=== PATIENT | female | born 1995 | race Caucasian/White ===

== ENCOUNTER → 2018-11-22 14:07 | Outpatient (CLI) | payer MEDICAID, SELFPAY ==
[2015-12-28 06:30] VITALS: BMI 33.2
[2018-11-22 17:31] LABS: Chlamydia Trachomatis by PCR Negative (Negative); Neisserai gonorrhoeae by PCR Negative (Negative); Probe Check PASS; Sample Adequacy Control PASS; Specimen Processing Control PASS
[2018-11-28 12:24] LABS: HPV Reflexed? NOT INDICATED
== END ==
PROVIDERS: Visit Provider Obstetrics & Gynecology
DX: Z12.4 Encounter for screening for malignant neoplasm of cervix (principal); Z11.3 Encounter for screening for infections with a predominantly sexual mode of transmission
CPT/HCPCS: 87491; 87591; 88175; G0145

== ENCOUNTER → 2018-12-05 11:09 | Outpatient (CLI) | payer MEDICAID, SELFPAY ==
[2015-12-28 06:30] VITALS: BMI 33.2
[2018-12-05 13:29] LABS: Color, Urine Yellow (Yellow); Glucose, Dipstick Normal (Normal); Ketone-Dipstick 5 mg/dl (Negative); Leukocyte Esterase-Dipstick 25 /ul (Negative); Nitrite-Dipstick Negative (Negative); Occult Blood-Urine 10 /ul (Negative); Protein-Dipstick Negative (Negative); Urine Bilirubin Dipstick Negative (Negative); Urine Clarity Cloudy (Clear); Urine Urobilinogen Normal (Normal)
[2018-12-05 13:49] LABS: Thyroid Stim Hormone (TSH) 0.98 uIU/mL (0.358-3.74)
[2018-12-05 13:53] LABS: Hematocrit 37.3 % (37-47); Hemoglobin 12.9 g/dl (12.0-15.0); Mean Corp Hgb Conc 34.6 g/gl (32-36); Mean Corpuscular Hgb 31.1 pg (27.0-32.0); Mean Corpuscular Volume 89.9 fL (81-99); Mean Platelet Vol. 9.9 fl (6.2-12.0); Platelet Count 215 K/mm3 (150-450); RBC Distribution Width SD 42.2 fl (35.1-43.9); Red Blood Count 4.15 M/mm3 (4.2-5.4); White Blood Count 6.4 K/mm3 (4.4-11.0)
[2018-12-05 13:54] LABS: Absolute Lymphocyte Count 1.62 X10^3/ul (0.83-4.51); Absolute Neutrophil Count 4.1 X10^3/uL (2.0-7.7); Basophil# 0.02 X10^3/uL; Basophil% 0.3 % (0-1); Eosinophil# 0.12 X10^3/uL; Eosinophils% 1.9 % (0-5); Lymphocyte # 1.62 X10^3/ul (4.0); Lymphocyte % 25.5 % (19-41); Monocyte# 0.47 X10^3/uL; Monocyte% 7.4 % (0-10); Neutrophil # 4.11 X10^3/uL (2.7-7.7); Neutrophil % 64.6 % (47-70); POSITIVE COUNT NO; POSITIVE DIFFERENTIAL NO; POSITIVE MORPHOLOGY NO
[2018-12-05 14:29] LABS: HIV - WCH Non-Reactive (Nonreactive); Rubella IgG 51.7 IU/mL
[2018-12-06 20:20] LABS: Prenatal RPR NONREACTIVE (NONREACTIVE)
[2018-12-07 09:17] LABS: HEPATITIS B SURFACE AG Negative (Negative); Hep C Antibodies 0.1 s/co ratio (0.0-0.9)
== END ==
PROVIDERS: Visit Provider Obstetrics & Gynecology
DX: Z34.81 Encounter for supervision of other normal pregnancy, first trimester (principal)
CPT/HCPCS: 36415; 81002; 84443; 85025; 86703; 86762; 86803; 87340

== ENCOUNTER → 2019-04-08 | Outpatient (CLI) | payer MEDICAID, SELFPAY ==
[2015-12-28 06:30] VITALS: BMI 33.2
[2019-04-08 11:14] LABS: Hematocrit 31.4 % (37-47); Hemoglobin 10.6 g/dl (12.0-15.0); Mean Corp Hgb Conc 33.8 g/gl (32-36); Mean Corpuscular Hgb 30.8 pg (27.0-32.0); Mean Corpuscular Volume 91.3 fL (81-99); Mean Platelet Vol. 9.7 fl (6.2-12.0); Platelet Count 186 K/mm3 (150-450); RBC Distribution Width CV 12.6 % (11.6-14.6); RBC Distribution Width SD 40.6 fl (35.1-43.9); Red Blood Count 3.44 M/mm3 (4.2-5.4); Scan Indicated on CBC? Y/N NO; White Blood Count 7.6 K/mm3 (4.4-11.0)
[2019-04-08 11:39] LABS: Glucose Challenge Gest 1H 50g 96 mg/dL (70-140)
== END | disposition home or self-care (01) ==
PROVIDERS: Visit Provider Obstetrics & Gynecology
DX: Z34.83 Encounter for supervision of other normal pregnancy, third trimester (principal)
CPT/HCPCS: 36415; 82950; 85027; 86850

== ENCOUNTER → 2019-06-03 13:51 | Outpatient (CLI) | payer MEDICAID, SELFPAY | PROVIDERS: Visit Provider Obstetrics & Gynecology | DX: Z34.83 Encounter for supervision of other normal pregnancy, third trimester (principal); Z36.85 Encounter for antenatal screening for Streptococcus B | CPT/HCPCS: 87081 ==

== ENCOUNTER 2019-07-01 09:35 | Inpatient (IN) | payer MEDICAID, SELFPAY ==
[2015-12-28 06:30] VITALS: BMI 33.2
--- NOTE | 2019-07-01 10:08 | HP.PCM_ITS ---
History and Physical Date of Admission: 07/01/19 OB HISTORY AND PHYSICAL EXAMINATION History of this : 23 yo female Ab0 with EDC 06/26/2019 by 11 weeks 0 days Ultrasound, presents to Labor and Delivery at 40 5/7 wk with CC of contractions. 5 cm at initial RN exam. care remarkable for : A negative. GBS negative 1.) MSAFP and CF testing declined 2.) Prefers no epidural, ANEMIA 3.) Third baby with Down Syndrome 4.) Sterilization request, FED CONSENT FOR TUBAL signed 04/08/19 5.) A negative Pertinent Past Medical History: As above. Allergies: NKDA Medications: During - terconazole 0.8 % vaginal cream; + DHA 28 mg iron- 975 mcg-200 mg oral pack; ferrous sulfate 325 mg (65 mg iron) tablet Review of Systems: Contractions SURGICAL HISTORY: 1. Tonsils, 11/07 MENSTRUAL HISTORY: LMP Known?- DefiniteAmount/Duration - 5 days, Regularity - Regular, Frequency - monthly days, LMP - 09/26/18, Age Onset Menarche - 13 PAST PREGNANCIES: Total Pregnancies - 4; Full Term Pregnancies - 3; Premature - 0; Abortions, Induced - 0; Abortions, Spontaneous - 0; Ectopics - 0; Multiple Births - 0; Living Children - 3 FAMILY HISTORY: SURGICAL HISTORY: 1. Tonsils, 11/07 MENSTRUAL HISTORY: LMP Known?- Definite Amount/Duration - 5 days, Regularity - Regular, Frequency - monthly days, LMP - 09/26/18, Age Onset Menarche - 13 PAST PREGNANCIES: Total Pregnancies - 4; Full Term Pregnancies - 3; Premature - 0; Abortions, Induced - 0; Abortions, Spontaneous - 0; Ectopics - 0; Multiple Births - 0; Living Children - 3 FAMILY HISTORY: Brother - Leukemia; Paternal Grandparent - Cancer; SOCIAL HISTORY: Alcohol Use - None Smoking - Never Diet - moderate, balanced diet and caffeine < 2 drinks per day Lifestyle - Exercise - minimal Seat Belt Use - always Job Description - Homemaker Illicit Drug Use - denies use of street drugs Sexual Activity - Residence - lives in a home w and toddler Place of - [place] Spouse-Sig Other Name - Eddie Morgan Spouse-Sig Other Occupation - [employer] Spouse-Sig Other Phone No - [phone] Children Name(s) - Elana Morgan 2014, (EB) Alee, 2016 (EB) Control - PHYSICAL EXAMINATION General Appearance: 23 yo female uncomfortable with contractions Vital Signs: AF, VSS Breasts: deferred Abdomen: gravid Pelvis: adequate Cervix: 5 cm VTX AGA Movement: present Heart: present 130-140s avg variability. Accels UCs q 2-3 wks. Reassuring FHR tracing. Impression /Plan: Intrauterine . 40 5/7 wk EGA in labor. Admit to labor and delivery for delivery.
[2019-07-01] MEDS: Lactated Ringers 1,000 ML 50 ML IV (10:20)
[2019-07-01 10:26] VITALS: BMI 35.6
[2019-07-01 10:36] LABS: Absolute Lymphocyte Count 2.25 X10^3/uL (0.83-4.51); Absolute Neutrophil Count 6.7 X10^3/uL (2.0-7.7); Basophil# 0.04 X10^3/uL; Basophil% 0.4 % (0-1); Eosinophil# 0.15 X10^3/uL; Eosinophils% 1.5 % (0-5); Hematocrit 34.3 % (37-47); Hemoglobin 11.3 g/dL (12.0-15.0); Lymphocyte # 2.25 X10^3/ul (4.0); Mean Corp Hgb Conc 32.9 g/dL (32-36); Mean Corpuscular Hgb 29.3 pg (27.0-32.0); Mean Corpuscular Volume 88.9 fL (81-99); Mean Platelet Vol. 10.1 fl (6.2-12.0); Monocyte% 6.1 % (0-10); NRBC Flagged by Analyzer 0 % (0-5); Neutrophil # 6.68 X10^3/uL (2.7-7.7); Neutrophil % 68.5 % (47-70); Platelet Count 172 K/mm3 (150-450); Red Blood Count 3.86 M/mm3 (4.2-5.4); White Blood Count 9.8 K/mm3 (4.4-11.0)
[2019-07-01] MEDS: Lactated Ringers 500 ML 999 ML IV (11:40)
--- NOTE | 2019-07-01 12:06 | PCM.PN.OB ---
Subjective: Able to breath through contractions, states coping well; would like delayed cord clamping if she and baby are doing well; bedside and supportive; he would prefer provider cut cord. Objective: Breathing through contractions AVSS FHTs:135bp, baseline, moderate variability, with acel, no decels UCs: Q 2-3, palpate moderate Cervical exam: deferred - Physical Exam General: Alert, Oriented x3, Cooperative, No apparent distress HEENT: PERRLA, EOMI Oral: Moist Mucosa Neck: Supple Lungs: Clear to auscultation, Normal air movement Cardiovascular: Regular rate, Regular Rhythm Abdomen: Bowel Sounds Present, Soft, Non Tender, Non-Distended, Gravid Extremities: No cyanosis, Capillary Refill Less than 3 Seconds Musculoskeletal: No Tenderness to Palpation of Joints or Extremities Neurological: Cranial nerves II-XII grossly intact, Deep Tendon Reflexes 2+/4 and Symmetrical Psych/Mental Status: Normal Affect, Appropriate, Alert and oriented to time, place, person, mood and affect Weight: 194 lb 10.691 oz Body Mass Index (BMI) 35.6 Intake and Output for Last 24 Hours 06/29/19 06/30/19 07/01/19 23:59 23:59 23:59 Intake Total 66.67 / 66.67 Balance 66.67 / 66.67 Laboratory Tests Past 24 Hrs 07/01/19 07/01/19 10:20 10:20 WBC 9.8 RBC 3.86 L Hgb 11.3 L Hct 34.3 L MCV 88.9 MCH 29.3 MCHC 32.9 RDW Std Deviation 42.0 RDW Coeff of Tresa 13.0 Plt Count 172 MPV 10.1 Immature Gran % (Auto) 0.500 Neut % (Auto) 68.5 Lymph % (Auto) 23.0 [place] % (Auto) 6.1 Eos % (Auto) 1.5 Baso % (Auto) 0.4 Absolute Neuts (auto) 6.7 Absolute Lymphs (auto) 2.25 Nucleated RBC % 0 Blood Type A NEGATIVE Antibody Screen NEGATIVE Medical Necessity - Tobacco Use Smoking Status: Never smoker Assessment/Plan Assessment: 23yo , IUP @ 22g2oooo GBS negative RH negative Active labor Plan: Expectant management Anticipate vaginal
--- NOTE | 2019-07-01 13:29 | PCM.PN.BLA ---
Progress Note 40 5/7 wk EGA labor Requested AROM Using nitrous oxide for pain. Declined epidural. AROM performed, clear fluid CX: 6/100/-2 vtx. EFM reassuring. A/P: 40 5/7 wk labor. AROM. Shortly after AROM, now requesting epidural. Will attempt placement.
[2019-07-01] MEDS: fentaNYL-bupivacaine (epidural) 100 ML BAG EPIDURAL (13:36)
[2019-07-01] MEDS: Oxytocin 30 units/NS 500 ml 30 UNITS/500 ML IV.SOLN IV (16:50)
[2019-07-01] MEDS: Lactated Ringers 1,000 ML 200 ML IV (17:29)
[2019-07-01] MEDS: Oxytocin 30 units/NS 500 ml 30 UNITS/500 ML IV.SOLN 334 UNITS IV (18:33)
[2019-07-01] MEDS: Methylergonovine 0.2 MG/ML Ampul IM (18:41)
--- NOTE | 2019-07-01 18:44 | PCM.OPRPT ---
Vaginal Delivery Maternal Presentation: Active Labor 40 5/7 wk labor Amniotic Membrane Rupture Type: Artificial Amniotic Fluid Description: Clear Final RHETT: 06/26/19 Final RHETT Source: US <20 weeks Gestational age: 40 Weeks and 5 Days Date of Procedure: 07/01/19 Pre-Operative Diagnosis: 40 5/7 wk labor Post-Operative Diagnosis: same Surgery/ Procedure Performed: Spontaneous Vaginal Delivery Anesthesiologist: Medardo Salmon Type of Anesthesia: Epidural Description of Procedure: of a mora viable male over intact perineum. Head delivered KALINA. OP and nares bulb suctioned on perineum. No nuchal cord. shoulder dystocia noted. Relieved by Nicolette maneuver, maternal expulsive effort. Gentle lateral traction and Wood screw maneuver. Anterior shoulder delivered then posterior shoulder. Ap 8/9 Weight pending Infant to maternal abdomen for warming and drying. Vigorous cry. Placenta delivered by spont expulsion and expression. Bandls ring noted at lower uterine segment and placenta teased out through this. uterus then manually explored. No retained membranes noted PP exam: no lacerations noted. No repair required. Pt and infant tolerated delivery well. to recovery, stable condition. Ray layla counts correct times two EBL 300 cc Presentation: Vertex, KALINA Placental Delivery Description: Spontaneous, Expressed Placenta Disposition: [facility] Cord Vessel Description: 3 Vessels Drain: Torres to straight drain Estimated Blood Loss: 300 Infant A gender: Male (1 minute): 8 (5 minute): 9 Episiotomy Description: None Laceration: None Medications given after delivery: IV Pitocin Complications: None
--- NOTE | 2019-07-01 18:50 | DCINST_ITS ---
Discharge Diet: No Restrictions Discharge Activity: May Shower, May Take a Tub Bath May resume sexual activity in: 4-6 weeks Additional Activity Instructions:: Nothing in the vagina for 4-6 weeks. You may return to work/school in 6 weeks. Additional Instructions: If you experience any of the following, contact your healthcare provider. * Bleeding that soaks a pad every hour for 2 hours * Fever 100.4 or higher * Unrelieved abdominal pain * Problems urinating (including inability to urinate or burning while urinating). * Visual changes * Severe headache * Flu-like symptoms * Pain or redness in one of both of your breasts * Pain, warmth, tenderness or swelling in your legs, especially the calf area * Frequent nausea and vomiting * Symptoms of depression or anxiety If you experience any of the following, call 911 or go to the nearest Emergency Room. * Chest pain * Problems breathing * Seizure activity * Partial or complete paralysis of a body part, slurred speech, weakness or drooping of the face, or a sudden inability to walk or hold your balance Allergies/Adverse Reactions: Allergies No Known Allergies Allergy (Verified 12/28/15 06:34) Medications to take at Discharge Vits [Prenatabs FA ] 1 tablet PO DAILY 12/05/13 Please Follow Up With: Bailey Segal MD - [phone] When: Call to make an appointment with your doctor in 6 weeks. Primary Care Physician: Care Physician,No Primary [Primary Care Provider] - Test Results: Test results from this visit will be discussed in further detail at your follow- up appointment, if applicable. Proposed Discharge Date: 07/03/19
--- NOTE | 2019-07-01 18:50 | PCM.DCVAG ---
Discharge Diet: No Restrictions Discharge Activity: May Shower, May Take a Tub Bath May resume sexual activity in: 4-6 weeks Additional Activity Instructions:: Nothing in the vagina for 4-6 weeks. You may return to work/school in 6 weeks. Additional Instructions: If you experience any of the following, contact your healthcare provider. Bleeding that soaks a pad every hour for 2 hours Fever 100.4 or higher Unrelieved abdominal pain Problems urinating (including inability to urinate or burning while urinating). Visual changes Severe headache Flu-like symptoms Pain or redness in one of both of your breasts Pain, warmth, tenderness or swelling in your legs, especially the calf area Frequent nausea and vomiting Symptoms of depression or anxiety If you experience any of the following, call 911 or go to the nearest Emergency Room. Chest pain Problems breathing Seizure activity Partial or complete paralysis of a body part, slurred speech, weakness or drooping of the face, or a sudden inability to walk or hold your balance Allergies/Adverse Reactions: Allergies No Known Allergies Allergy (Verified 12/28/15 06:34) Medications to take at Discharge Vits [Prenatabs FA ] 1 tablet PO DAILY 12/05/13 Please Follow Up With: Bailey Segal MD - [phone] When: Call to make an appointment with your doctor in 6 weeks. Primary Care Physician: Care Physician,No Primary [Primary Care Provider] - Test Results: Test results from this visit will be discussed in further detail at your follow-up appointment, if applicable. Proposed Discharge Date: 07/03/19
[2019-07-01 20:38] VITALS: BP 125/62; PULSE 85; RESP 16; TEMP 36.9; O2SAT 98
[2019-07-01] MEDS: 0.9% Saline Lock 10 ML Syringe IV (21:29)
[2019-07-02 00:44] VITALS: BP 119/49; PULSE 96; RESP 16; TEMP 36.3; O2SAT 95
[2019-07-02] MEDS: Ibuprofen 600 MG Tablet PO ×2 (04:36→14:59)
[2019-07-02 04:48] VITALS: BP 125/51; PULSE 94; RESP 16; TEMP 36.4; O2SAT 95
--- NOTE | 2019-07-02 07:03 | PN.OBGYN_ITS ---
Subjective: PPD#1 Doing well. Nursing baby wt 10# 1 oz. Doing well with nursing States he has completed sugar testing and all WNL. Hoping to go home later today if baby is released - Physical Exam General: Alert, Oriented x3, Cooperative, No apparent distress HEENT: Atraumatic, EOMI Neck: Supple Abdomen: Soft - Fundus firm at umbilicus. NT Neurological: Cranial nerves II-XII grossly intact Psych/Mental Status: Normal Affect Vital Signs Temp Pulse Resp BP Pulse Ox 97.6 F L 94 16 125/51 H 95 07/02/19 04:48 07/02/19 04:48 07/02/19 04:48 07/02/19 04:48 07/02/19 04:48 Oxygen Delivery Method Room Air Weight: 88.3 kg Body Mass Index (BMI) 35.6 Intake and Output for Last 24 Hours 06/30/19 07/01/19 07/02/19 23:59 23:59 23:59 Intake Total 2284.82 / 2284.82 Output Total 1100 / 1100 450 / 450 Balance 1184.82 / 1184.82 -450 / -450 Laboratory Tests Past 24 Hrs 07/01/19 07/01/19 10:20 10:20 WBC 9.8 RBC 3.86 L Hgb 11.3 L Hct 34.3 L MCV 88.9 MCH 29.3 MCHC 32.9 RDW Std Deviation 42.0 RDW Coeff of Tresa 13.0 Plt Count 172 MPV 10.1 Immature Gran % (Auto) 0.500 Neut % (Auto) 68.5 Lymph % (Auto) 23.0 [place] % (Auto) 6.1 Eos % (Auto) 1.5 Baso % (Auto) 0.4 Absolute Neuts (auto) 6.7 Absolute Lymphs (auto) 2.25 Nucleated RBC % 0 Blood Type A NEGATIVE Antibody Screen NEGATIVE Medical Necessity - Tobacco Use Smoking Status: Never smoker Assessment/Plan PPD#1 Stable pp. GBS neg. Would like to go home today, after 24 hr testing on baby. Baby LGA but doing well with nursing. Dischg home today if baby is released. RTO in 6 wk for pp check, prn sooner.
[2019-07-02 08:20] VITALS: BP 127/69; PULSE 85; RESP 16; TEMP 36.5; O2SAT 97
[2019-07-02 11:58] VITALS: BP 122/47; PULSE 73; RESP 16; TEMP 36.2
[2019-07-02] MEDS: Prenatal Vits Tablet 1 TABLET PO (15:00)
[2019-07-02 17:00] VITALS: BP 127/68; PULSE 69; RESP 16; TEMP 36.2
== END 2019-07-02 20:05 | disposition home or self-care (01) | DRG 560 ==
PROVIDERS: Advanced Practice Midwife; Admitting Provider Obstetrics & Gynecology; Referring Provider Obstetrics & Gynecology; Visit Provider Obstetrics & Gynecology
DX: O66.0 Obstructed labor due to shoulder dystocia (principal); O36.63X0 Maternal care for excessive fetal growth, third trimester, not applicable or unspecified; O99.02 Anemia complicating childbirth; D64.9 Anemia, unspecified; Z3A.40 40 weeks gestation of pregnancy; Z37.0 Single live birth
CPT/HCPCS: 59025; 59050; 85025; 86850; 86900; 86901; 99218; J7120; A4216; G0378

== ENCOUNTER 2019-08-28 10:33 | Day surgery (SDC) | payer MEDICAID, SELFPAY ==
--- NOTE | 2019-08-27 09:01 | HP.PCM_ITS ---
History and Physical Date of Admission: 08/28/19 Rosa presented for exam and plans surgical sterilization for bir th control. She signed Federal Consent for tubal ligation during , in March 2019. No further childbearing planned. Reviewed R,B,A of bilateral salpingectomy EB ALLERGIES: NKDA MEDICATIONS HISTORY: Current medications prescribed by our practice are: 1. ferrous sulfate 325 mg (65 mg iron) tablet, 1 po bid Patient is also takin. + DHA 28 mg iron-975 mcg-200 mg oral pack, daily REVIEW OF SYSTEMS: GENERAL - Denies fever, or chills SKIN - Denies skin changes EYES - Denies visual changes EARS - Denies difficulty hearing NOSE - Denies nasal congestion or bleeding MOUTH - Denies sore throat or difficulty swallowing NECK - Denies pain or swelling RESPIRATORY - Denies shortness of breath or wheezing CARDIOVASCULAR - Denies palpitations or chest pain GASTROINTESTINAL - Denies nausea, vomiting, diarrhea, constipation GENITOURINARY - Denies dysuria, frequency of urination, incontinence of urine MUSCULOSKELETAL - Denies joint or muscle pain NEUROLOGICAL - Denies localized numbness or weakness PSYCHIATRIC - Denies depression or anxiety ENDOCRINE - Denies heat or cold intolerance, weight loss or gain HEMATO-IMMUNOLOGIC - Denies excessive bleeding with cuts PAST HISTORY: Breast/Ovarian/Colon Cancers - Denies Infections - Chicken pox Illnesses - none Accidents - no injuries of consequence History of Abnormal PAPS - Never Hospitalizations - see surgery SURGICAL HISTORY: 1. Tonsils, 11/07 PAST PREGNANCIES: Total Pregnancies - 4; Full Term Pregnancies - 4; Premature - 0; Abortions, Induced - 0; Abortions, Spontaneous - 0; Ectopics - 0; Multiple Births - 0; Living Children - 4 FAMILY HISTORY: Brother - Leukemia; PaternalGrandparent - Cancer; SOCIAL HISTORY: Alcohol Use - None Smoking - Never Diet - moderate, balanced diet and caffeine < 2 drinks per day Lifestyle - Exercise - minimal Seat Belt Use - always Job Description - Homemaker Illicit Drug Use - denies use of street drugs Sexual Activity - Residence - lives with Place of - [place], [place] Spouse-Sig Other Name - Eddie Morgan Spouse-Sig Other Occupation - Construction Spouse-Sig Other Phone No - [phone] Children Name(s) - Elana 2014, (EB) Alee, 2016 (EB), Colleen ([facility]), [place] (EB) Control - wants tubal PHYSICAL EXAMINATION BP- 100/60 Sitting, Right arm, regular cuff Weight- 166.00 lbs Height- 62.50 inch BMI:29.94 CONSTITUTIONAL - NAD, well nourished, and well developed HEENT - Normocephalic, PERRLA, EOMI NECK - no nuchal rigidity EXTREMITIES - No edema or calf tenderness NEUROLOGICAL - Cranial nerves II-XII grossly intact PSYCHIATRIC - A and O to time, place, person, mood and affect ASSESSMENT: 1. Other Specified Counseling; sterilization request PLAN BY DIAGNOSIS: 1. Other Specified Counseling, Sterilization request Reviewed surgical procedure. R,B,A as well as anticipated preop, operative and postop recovery including activity restrictions reviewed. All questions answered to patient's satisfaction and consents signed and on chart. Plan for Laparoscopic salpingectomy. RTO in 2 wk after surgery for this.
[2019-08-28 11:12] LABS: International Normalized Ratio 1.1; Partial Thromboplast Time 28.4 Seconds (24.1-36.2); Prothrombin Time (Protime)PT. 13.9 SECONDS (11.7-14.9)
[2019-08-28 11:33] VITALS: BP 104/63; PULSE 58; RESP 16; TEMP 36.4; O2SAT 100; BMI 30.7
[2019-08-28 11:35] LABS: Internal QC Validated? YES +Cl - CLEAR BKGD; Pregnancy, Urine Negative Negative
[2019-08-28] MEDS: Lactated Ringers 1,000 ML 100 ML IV (11:38)
[2019-08-28] MEDS: Lubricating Jelly 60 GM Tube 30 GM TOPICAL (12:26)
--- NOTE | 2019-08-28 12:30 | FALS_PTH ---
PATIENT: MAULIK FIGUEROA LOC: [facility] [place] U#:[id number] AGE/SX: 23/F ROOM: RE08/28/[address]: Dr. Bailey Segal MD : [id number] BED: DIS: 08/28/2019 SPEC #: [id number] RECD: 08/28/19 16:14 STATUS: KEARA OSCAR #: [id number] HUSEYIN: 08/28/19 12:[address]: Bailey Segal DEPT: SURGICAL PATHOLOGY RECD BY: Yury Medrano ENTERED: 08/29/19 10:37 SP TYPE: FALL TUBES OTHR DR: No Primary Care Phys Tissues: Fallopian tube Procedures: Surgery Specimen Level II Surgery Specimen Level IV HEADER OPERATION: Laparoscopic salpingectomy PRE-OP DIAGNOSIS: Elective sterilization TISSUE SUBMITTED: Bilateral fallopian tubes MICROSCOPIC DIAGNOSIS Right and left fallopian tubes, bilateral salpingectomies: Two complete segments of fallopian tubes. Benign paratubal cyst. AM:flavia 08/30/19 MICROSCOPIC DESCRIPTION Slides are reviewed. GROSS DESCRIPTION Received is one container labeled with the patient's name and designated bilateral fallopian tubes. The specimen consists of bilateral fallopian tubes including fimbrial ends measuring 4 cm in length and 0.7 cm in diameter and 3.5 cm in length and 0.5 cm in diameter. A paratubal cyst is noted in the smaller fallopian tube which measures 1 x 0.7 x 0.5 cm. Pedicle measures up to 2.5 cm in length and 0.1 cm in diameter. The fallopian tubes are not identified as right or left. Sections reveal unremarkable cut surfaces. Vending Machine Repairer sections are submitted in two cassettes as follows: 1 - one fallopian tube, 2 - second fallopian tube and paratubal cyst. / SJ:flavia 08/29/19 TC: CPT: 68078, 19790
--- NOTE | 2019-08-28 12:45 | DCINST_ITS ---
Discharge Diet: No Restrictions Discharge Activity: May Shower, May Take a Tub Bath Return to work on:: 08/29/19 May resume sexual activity in: 1 week Additional Activity Instructions:: Ambulate often the next week after surgery. Nothing in the vagina for 5 days. Call your doctor if you observe: Fever of 101 or Higher, Uncontrolled pain Cleanse incision/area with: Soap & Water, Keep Dressing Clean & Dry Additional Instructions: Take tylenol 500 mg tabs 1 or 2 tabs by mouth every 8 hrs. You may add either two Aleve or three Ibuprofen every 8 hr for pain also. Add OxyIR 1 tablet by mouth every 6 hrs for more severe pain as needed. Allergies/Adverse Reactions: Allergies No Known Allergies Allergy (Verified 08/28/19 11:32) Medications to take at Discharge Vits [Prenatabs FA ] 1 tablet PO DAILY 12/05/13 Oxycodone [Oxyir] 5 mg PO Q6H PRN PRN 2 Days #5 tab 08/28/19 The following prescriptions were given: Oxycodone [Oxyir] 5 mg PO Q6H PRN PRN 2 Days #5 tab PRN Reason: Mod-Severe Pain (4-10/10) Transmission Status: Sent to [id number] Primary Care Physician: Care Physician,No Primary [Primary Care Provider] - Test Results: Test results from this visit will be discussed in further detail at your follow- up appointment, if applicable. Please Follow Up With: Bailey Segal MD - [phone] When: Appt in two weeks for postop check up in the office. Proposed Discharge Date: 08/28/19
[2019-08-28] MEDS: Bupiv/Epi 0.25% 30 ML Vial (12:57)
--- NOTE | 2019-08-28 13:12 | PCM.OPRPT ---
Report of Operation Date of Procedure: 08/28/19 Pre-Operative Diagnosis: sterilization request Post-Operative Diagnosis: same Surgery/Procedure Performed:: Laparoscopic bilateral salpingectomy Description of Surgical Findings:: Findings; Normal appearing, anteverted uterus. Fallopian tubes and ovaries are WNL. Gross inspection of bowel, omentum. liver edge also WNL. photos were taken of the uterus and ovaries after Bilateral salpingectomy, and of the RUQ / liver edge Type of Anesthesia:: General Anesthesiologist: Lisa Cowan CRNA Specimen's removed: Bilateral fallopian tubes Drains: red purdy prior to case Estimated Blood Loss (mL): 20 Fluids Replaced: LR Description of Procedure: Narrative account: After the risks, benefits, alternatives of procedure had been reviewed with the patient, informed consent was obtained. The patient was taken back to the Operative room with an IV running. she was positioned on the operating table in dorsal supine position, where she was given general anesthesia. Once asleep she was repositioned to the dorsal lithotomy position and prepped and draped in the usual sterile fashion. A red Purdy catheter was used to drain the bladder prior to initiating the case. A sponge stick placed into the vagina to allow manipulation of the uterus and cervix during the case. Attention was then turned to the anterior abdominal wall where 10 cc of 0.25 % Marcaine with epinephrine was instilled at the suprapubic and infraumbilical skin and at a point midway between in the midline. Skin incisions were then created in the midline at the suprapubic skin and at the infraumbilical skin and midway between the two. While maintaining upward traction of the anterior abdominal wall a Veress needle was inserted through the umbilical incision into the peritoneal cavity. There was free drop of saline, low opening pressure and free flow of CO2 noted. Once the intraabdominal pressure had reached 12 mm of mercury the Veress needle was removed and a bladeless 5 mm trocar was placed through infraumbilical skin incision into the peritoneal cavity. Correct placement was confirmed using the scope. Under direct visualization then with the patient in Trendelenburg position, a bladeless 5 mm trocar was inserted in through suprapubic skin incision into the peritoneal cavity and at a point midway between the infraumbilical and suprapubic trocars. The uterus as anteverted and both ovaries and fallopian tubes were WNL. The R fallopian tube was grasped and retracted medially and using a LigaSure device the fallopian tube was excised from the ovary and mesosalpinx. Excellent hemostasis was noted at the excision site. The R fallopian tube was brought through the suprapubic trocar and set aside for later pathology review. In a similar manner the L fallopian tube was grasped and retracted medially and the fallopian tube was excised and removed from the abdominal cavity through the suprapubic trochar. The Fallopian tubes were sent to pathology. Excellent hemostasis was noted by visualization of the pelvis, ovaries, and remaining mesosalpinx. Photos were taken of the uterus and Bilateral remaining ovaries and of the RUQ and liver edge. At this point the the procedure was terminated. The pneumoperitoneum was reduced and the instruments and trocars were removed from he the anterior abdominal wall skin. The skin incisions were closed with 4-0 Monocryl in a subcuticular fashion. Dermabond was applied to the skin. The sponge stick was removed from the vagina. The patient was returned to dorsal supine position. She was awakened from general anesthesia. She was transferred to the recovery room bed in stable condition after tolerating the procedure well. Sponge, lap, needle and instrument counts were correct x two. Medications given preop and intraoperatively included: 10 cc of 1/2 % Marcaine with epinephrine --used as a subcutaneous block and Toradol 30 mg IV x one. For a complete listing of medications given preop and intraop , please see the anesthesia record. - Complications none - Admit VTE Documentation VTE Present on Admission: No VTE Mechan Device Prophylaxis: SCD's VTE Pharm Prophylaxis ordered?: No
[2019-08-28] MEDS: Sugammadex Sodium 200 MG/2 ML VIAL IV (13:15)
[2019-08-28 13:27] VITALS: BP 104/63; BP 110/55; PULSE 84; RESP 18; TEMP 36.8; O2SAT 97
[2019-08-28 13:30] VITALS: BP 104/63; BP 110/56; PULSE 75; RESP 18; O2SAT 100
[2019-08-28 13:45] VITALS: BP 104/63; BP 105/60; PULSE 65; RESP 18; O2SAT 99
[2019-08-28 13:53] VITALS: BP 104/63; BP 105/66; PULSE 66; RESP 18; TEMP 36.6; O2SAT 99
[2019-08-28 14:53] VITALS: BP 104/63; BP 105/64; PULSE 62; RESP 16; TEMP 36.3; O2SAT 98
== END 2019-08-28 14:53 | disposition home or self-care (01) ==
LOC: SDC 10:34 → AC 10:41
PROVIDERS: Anesthesiology; Referring Provider Obstetrics & Gynecology; Visit Provider Obstetrics & Gynecology
PROC: (CPT 58661; principal; 2019-08-28 12:15)
DX: Z30.2 Encounter for sterilization (principal); N83.8 Other noninflammatory disorders of ovary, fallopian tube and broad ligament
CPT/HCPCS: 00840; 58661; 36415; 81025; 85610; 85730; 88302; 88305; J7120; J2405

== ENCOUNTER 2019-11-16 21:31 | Emergency (ER) | payer MEDICAID, SELFPAY ==
[2019-11-16 21:31] VITALS: BP 124/74; PULSE 119; RESP 16; TEMP 38.2; O2SAT 95; BMI 30.2
[2019-11-16 22:33] VITALS: BP 126/78; PULSE 111; RESP 17; TEMP 37.7; O2SAT 97
--- NOTE | 2019-11-16 23:24 | RAD_ITS ---
STUDY: X-RAY CHEST REASON FOR EXAM: Female, 24 years old. COUGH TECHNIQUE: PA and lateral COMPARISON: None. FINDINGS: The lungs are clear and expanded. There is no demonstrated pleural abnormality. Normal size heart. Normal mediastinum and tanner. Normal visualized pulmonary arteries. Normal visualized aortic arch and descending thoracic aorta. Normal visualized thoracic spine. Normal visualized ribs, clavicles, and shoulders. There is no demonstrated abnormality of the visualized soft tissue structures of the upper abdomen. RAD/Chest PA and Lateral IMPRESSION: Normal x-ray examination of the chest. Electronically Signed: Jesus Adorno, at 0:36 EST Tel , Service support ,
[2019-11-16] MEDS: 0.9% Normal Saline 1,000 ML 1000 ML IV (23:51)
[2019-11-16] MEDS: 0.9% Normal Saline 1,000 ML 150 ML IV (23:52)
[2019-11-16] MEDS: Ondansetron 4 MG/2 ML Vial IV (23:52)
[2019-11-16 23:54] LABS: Absolute Lymphocyte Count 1.35 X10^3/uL (0.83-4.51); Absolute Neutrophil Count 2.5 X10^3/uL (2.0-7.7); Basophil# 0.01 X10^3/uL; Basophil% 0.2 % (0-1); Eosinophil# 0.02 X10^3/uL; Eosinophils% 0.5 % (0-5); Hemoglobin 12.8 g/dL (12.0-15.0); Lymphocyte # 1.35 X10^3/ul (4.0); Mean Corp Hgb Conc 32.8 g/dL (32-36); Mean Corpuscular Hgb 29.2 pg (27.0-32.0); Mean Platelet Vol. 9.4 fl (6.2-12.0); Monocyte# 0.38 X10^3/uL; NRBC Flagged by Analyzer 0 % (0-5); Neutrophil # 2.45 X10^3/uL (2.7-7.7); Neutrophil % 58.1 % (47-70); Platelet Count 138 K/mm3 (150-450); RBC Distribution Width CV 12.8 % (11.6-14.6); RBC Distribution Width SD 42.3 fl (35.1-43.9); Red Blood Count 4.38 M/mm3 (4.2-5.4); White Blood Count 4.2 K/mm3 (4.4-11.0)
[2019-11-17] LABS: Anion Gap 6 (5-15); BUN 12 mg/dL (7-18); BUN/Creat Ratio 13.3 RATIO (10-20); Calcium,Total 8.5 mg/dL (8.5-10.1); Chloride 108 mmol/L (98-107); EST Glomerular Filtration Rate 82 mL/min (>60); Est Glom Filt Rate - Afr Amer 99 mL/min (>60); Estimated Creatinine Clearance 76.23 ml/min; Glucose 85 mg/dL (74-106); Sodium Level 141 mmol/L (136-145)
[2019-11-17 00:03] LABS: Internal QC Validated? YES +Cl - CLEAR BKGD; Pregnancy, Serum, hCG Quali. NEGATIVE Negative
--- NOTE | 2019-11-17 00:59 | ED.DCSUM_ITS ---
History of Present Illness Chief Complaint: Cold Sx Informant: Patient Onset: Days - 3 days Timing: Continuous Current Severity: Moderate Maximum Severity: Moderate Narrative: Patient presents with flulike symptoms. She states she initially got ill Monday morning, but felt that she was better and had no fever for period of 24 hours. Fever then returned tonight. She now has body aches, cough, chills, ear pain. She has not noted any vomiting. T-max at home was 100.7. Past Medical History - Allergies and Home Meds Allergies/Adverse Reactions: Allergies No Known Allergies Allergy (Verified 08/28/19 11:32) Primary Care Physician: Ashly Ratliff MD [COURTESY STAFF PHYSICIAN] - As Needed Past Medical History: None Lives: With Family Smoking Status: Never smoker Review of Systems General: Reports: Fever Eyes: Denies: Visual changes - bilaterally ENT: Reports: Bilateral ear pain, Sore throat Cardiovascular: Denies: Chest pain Respiratory: Reports: Dyspnea, Cough Gastrointestinal: Denies: Abdominal pain, Nausea, Vomiting, Diarrhea Genitourinary: Denies: Dysuria Musculoskeletal: Reports: Myalgias Skin: Denies: Rash Neurological: Reports: Headache Allergy: Denies: Uticaria Physical Exam Vital Signs/Narrative: Vital Signs Temp Pulse Resp BP Pulse Ox 11/16/19 22:33 99.9 F H 111 H 17 126/78 H 97 11/16/19 21:31 100.7 F H 119 H 16 124/74 H 95 Inital Vital Signs reviewed: Yes General: Well nourished, Well developed Head: Normocephalic ENT: Moist mucous membranes, TM's clear Neck: Supple Cardiovascular: Tachycardia Respiratory: No distress, CTA bilaterally Abdomen: Soft, Nontender, Normal bowel sounds Extremities: Nontender Skin: Normal color Neurological: Alert, Oriented x3 Psychological: Normal affect Diagnostic/Tx/Re-eval Impressions Chest X-Ray 11/16/19 23:24 IMPRESSION: Normal x-ray examination of the chest. Electronically Signed: Jesus Adorno, at 0:36 EST Tel , Service support , 11/16/19 23:24 Chest PA and Lateral [RAD] Stat 11/16/19 23:40 Mucosa - Nose Influenza Types A,B Direct FA (JAIRO) - Final Laboratory Results 11/16/19 11/16/19 11/16/19 23:30 23:30 23:30 WBC 4.2 L RBC 4.38 Hgb 12.8 Hct 39.0 MCV 89.0 MCH 29.2 MCHC 32.8 RDW Std Deviation 42.3 RDW Coeff of Tresa 12.8 Plt Count 138 L MPV 9.4 Immature Gran % (Auto) 0.200 Neut % (Auto) 58.1 Lymph % (Auto) 32.0 Sampson % (Auto) 9.0 Eos % (Auto) 0.5 Baso % (Auto) 0.2 Absolute Neuts (auto) 2.5 Absolute Lymphs (auto) 1.35 Nucleated RBC % 0 Sodium 141 Potassium 4.0 Chloride 108 H Carbon Dioxide 27.0 Anion Gap 6 BUN 12 Creatinine 0.90 Estim Creat Clear Calc 76.23 Est GFR (MDRD) Af Amer 99 Est GFR (MDRD) Non-Af 82 BUN/Creatinine Ratio 13.3 Glucose 85 Calcium 8.5 Serum , Qual NEGATIVE - Medical Decision Making Patient was given Zofran and IV fluids. On repeat evaluation she does feel somewhat improved. Test results are discussed with her. Although her influenza swab is negative, her 4-month-old son who is also being seen had a positive influenza test. I believe she has influenza as well. Because she will be around her child she will be treated with a course of Tamiflu. First dose of Tamiflu was given here and prescription sent to the pharmacy for her. ED Disposition - Plan for ED Patient: Disposition: Home or Assisted Living Diagnosis: Influenza Instructions: INFLUENZA (Adult) Prescriptions: Oseltamivir Phosphate [Tamiflu] 75 mg PO BID #10 cap Transmission Status: Received by [id number] Referrals: Ashly Ratliff MD [COURTESY STAFF PHYSICIAN] - As Needed
[2019-11-17] MEDS: Oseltamivir Phosphate 75 MG Capsule PO (01:16)
[2019-11-17 01:21] VITALS: BP 143/86; PULSE 112; RESP 16; O2SAT 97
== END 2019-11-17 01:22 | disposition home or self-care (01) ==
PROVIDERS: Emergency Provider Emergency Medicine
DX: J11.1 Influenza due to unidentified influenza virus with other respiratory manifestations (principal)
CPT/HCPCS: 71046; 80048; 84703; 85025; 87804; 96361; 96374; 99284; J7030; A4216; J2405